=== PATIENT | female | born 2005 ===

== ENCOUNTER 2024-08-07 15:41 | Inpatient (IN) | payer BC, SELFPAY ==
--- NOTE | 2024-08-07 15:50 | MHC.CARE ---
[facility] counselor called to report that Pt will be an expect for an assessment. She reported passive SI with a plan to OD on prescription meds which she has access to. Had a plan to OD on meds in the summer. Is nervous to tell parents that she is failing this semester due to mental health concerns. Parents are not supportive. 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 They have no way of monitoring her and she made statements about overdosing if the conversation does not end well. Not many protective factors. Rated her risk to harm herself a 6-7 out of 10.
--- NOTE | 2024-08-07 15:54 | MHC.CARE ---
Nancy, Mental health counselor and after hours tongue binder from [facility] is asking to be contacted for disposition. No MIKE as of now. Nancy- [phone]
[2024-08-07 15:55] VITALS: BP 137/89; BP 138/74; PULSE 72; PULSE 78; RESP 14; TEMP 37; O2SAT 100; O2SAT 98; BMI 27.5
[2024-08-07 15:57] VITALS: RESP 16
--- NOTE | 2024-08-07 15:59 | PC.NURSE ---
Millie comes in from [facility] today from the counselors office. She reports she has been having increasing life stressors that have been bothering her more frequently. She also reports that yesterday she felt nothing and to start feelings something again, she began cutting her inner right thigh as well as her left forearm. Both areas have superficial lacerations without evidence of infection. Patient reports she has a plan to overdose on her medications to end her life. Pt is calm and cooperative, help seeking, agreeable to care. Pt verbalizes understanding of plan of care at this time
--- NOTE | 2024-08-07 16:18 | ED_ITS ---
HPI - General Adult General Chief complaint: Psychiatric Symptoms Stated complaint: SI WITH PLAN Time Seen by Provider: 08/07/24 15:51 History of Present Illness ED Provider: Kamari WINTER narrative: The patient is a 19-year-old female with a history of anxiety and depression. She is on escitalopram and propranolol. 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 The patient has been feeling depressed for some time. She says that over the summer she had suicidal thoughts at 1 point with a plan to overdose on pills but she never did it. She has been feeling depressed as well and yesterday she used a razor to make several superficial cuts on her right thigh and her left forearm. She has never cut herself before. There was no significant bleeding. Today she went to her campus and told an network support administrator that she had cut herself. An ambulance was called and she was sent a section 12. She says that she was not trying to kill herself when she cut herself she was just cutting herself to see if she could feel something. She denies having done anything else to harm herself. No fever, sweats, chills. Related Data Home Medications ?Medication ?Instructions ?Recorded ?Confirmed desogestrel 0.15 mg-ethinyl 1 tab PO DAILY 08/07/24 08/07/24 estradiol 0.03 mg tablet (Apri) escitalopram oxalate 10 mg tablet 10 mg PO DAILY 08/07/24 08/07/24 propranolol 10 mg tablet 10 mg PO BID PRN anxiety 08/07/24 08/07/24 Allergies Allergy/AdvReac Type Severity Reaction Status Date / Time No Known Allergies Allergy Verified 08/07/24 15:56 Review of Systems 2 Review of Systems: Yes all other systems are reviewed and are negative [facility] Social History Social History Alcohol intake: current Alcohol intake frequency: holidays/special occasions only Smoked in Last 30 Days: No Use of substances other than those prescribed or required for medical reasons: No Advance Directives: No Advance Directives Information Provided: Yes Patient : No Physical Exam ED Vital Signs: Vital Signs - 24 hr 08/07/24 15:55 08/07/24 15:57 Temperature 98.6 F Pulse Rate 78 Respiratory Rate 14 16 Blood Pressure 137/89 Pulse Oximetry 100 Oxygen Delivery Method Room Air BMI result Body Mass Index 27.5 Const Other: The patient is awake and alert, pleasant cooperative. She has a subdued demeanor but does not seem in distress. HENMT Other: Face is symmetrical. Mucous membranes moist. Eyes General: appearance normal, both eyes and all related structures Conjunctivae: conjunctivae normal Pupils: Equal, round and reactive pupils present Neck Neck: Yes full ROM Resp Effort & Inspection: normal respiratory effort Auscultation: clear to auscultation bilaterally Cardio Rate: regular rate Rhythm: regular rhythm Heart sounds: S1 normal heart sound present and S2 normal heart sound present GI Other: Abdomen is soft and nontender Skin Other: Skin is dry and unremarkable. She has several superficial linear scratches to the skin of the left volar forearm. Similar injuries to the right anterior thigh. No full-thickness injuries. Neuro Other: The patient is awake and alert. Mental status is clear. Cranial nerves are intact. She moves her extremities normally and appropriately. She has normal coordination. She has a normal gait Cranial nerves: Yes Equal, round and reactive pupils present Extrem Other: No peripheral edema. Psych Other: The patient his has a very subdued demeanor but makes reasonably good eye contact. Medical Decision Making Medical Decision Making MDM Narrative: The patient is a 19-year-old female who was a college student who seems to have some degree of chronic depression and anxiety. She is on escitalopram and propranolol. She does not currently have a therapist. She has been feeling down recently and today used a razor to make superficial cuts to her left forearm and her right thigh. The cuts are quite superficial and do not require any intervention. Clinically the patient seems medically clear. I suspect that her labs were all be unremarkable. She will be seen by the care team. Addendum: The patient's labs are all unremarkable. She is medically clear. She will be evaluated by the care team for disposition. Lab Data 08/07/24 16:12 08/07/24 16:12 Labs: Lab Results 08/07/24 Range/Units 16:12 WBC 9.6 (4.8-10.8) X10*3/uL RBC 4.75 (4.20-5.50) X10*6/uL Hgb 14.1 (12.0-16.0) g/dl Hct 41.1 (37.0-47.0) % MCV 86.5 (80.0-98.0) fL MCH 29.7 (27.0-33.0) pg MCHC 34.3 (31.0-35.0) g/dl RDW 12.1 (11.0-16.0) % Plt Count 315 (160-400) X10*3/uL MPV 9.5 (9.4-12.3) fL Immature Gran % (Auto) 0.3 (0.0-0.4) % Neut % (Auto) 68.6 (45-73) % Lymph % (Auto) 24.3 (20-40) % [place] % (Auto) 5.6 (2-11) % Eos % (Auto) 0.7 (0-4) % Baso % (Auto) 0.5 (0-2) % Lymph # (Auto) 2.3 (1.2-4.9) X10*3/uL [place] # (Auto) 0.5 (0.1-1.2) X10*3/uL Eos # (Auto) 0.1 (0.0-0.4) X10*3/uL Baso # (Auto) 0.1 (0.0-0.2) X10*3/uL Abs Immat Gran (auto) 0.03 (0.00-0.03) X10*3/uL Absolute Neuts (auto) 6.6 (2.0-8.3) x10*3/uL Absolute Nucleated RBC 0.000 (0.0-0.012) X10*3/uL Nucleated RBC % (auto) 0.0 (0.0-0.2) /100WBC Sodium 137 (135-145) mmol/L Potassium 3.7 (3.3-5.1) mmol/L Chloride 106 (96-108) mmol/L Carbon Dioxide 23 (22-29) mmol/L Anion Gap 12 (12-20) BUN 10 (9-16) mg/dL Creatinine 0.80 (0.5-1.4) mg/dL Estim Creat Clear Calc 104.6 Estimated GFR > 60 Random Glucose 85 (60-115) mg/dL Calcium 10.2 (8.4-10.2) mg/dL Total Bilirubin 0.4 (0.0-1.0) mg/dL AST 19 (5-31) U/L ALT 14 (0-31) U/L Alkaline Phosphatase 52 (39-117) U/L Total Protein 7.5 (6.5-8.0) g/dL Albumin 4.4 (3.5-5.0) g/dL Urine Color Yellow Urine Appearance Clear Urine pH 5.5 (5.0-9.0) Ur Specific [place] 1.010 (1.005-1.025) Urine Protein Negative (Neg-Trace) mg/dL Urine Glucose (UA) Negative (Negative) mg/dL Urine Ketones 15 (Negative) mg/dL Urine Blood Negative (Negative) Urine Nitrite Negative (Negative) Ur Leukocyte Esterase Trace H (Negative) Urine Test NEGATIVE (NEGATIVE) Urine Opiates Screen Not Detected (Not Detect) Ur Buprenorphine Scrn Not Detected (Not Detect) ng/mL Ur Oxycodone Screen Not Detected (Not Detect) ng/mL Urine Methadone Screen Not Detected (Not Detect) ng/mL Urine Fentanyl Screen Not Detected (Not Detect) Ur Barbiturates Screen Not Detected (Not Detect) Ur Phencyclidine Scrn Not Detected (Not Detect) Ur Amphetamines Screen Not Detected (Not Detect) U Benzodiazepines Scrn Not Detected (Not Detect) Urine Cocaine Screen Not Detected (Not Detect) U Marijuana (THC) Screen Not Detected (Not Detect) Ethyl Alcohol < 10 mg/dL Discharge Plan Discharge Clinical Impression: Deliberate self-cutting, Depression Patient Disposition: Still a Patient Prescriptions: No Action desogestrel-ethinyl estradiol [Apri] 0.15-0.03 mg tablet 1 tab PO DAILY propranolol 10 mg tablet 10 mg PO BID PRN (Reason: anxiety) escitalopram oxalate 10 mg tablet 10 mg PO DAILY Interventions: [place]-Suicide Risk Severity Scale Last Done: 08/07/24 15:57 Print Language: Macanese
[2024-08-07 16:22] LABS: Basophils Absolute Auto 0.1 X10*3/uL (0.0-0.2); Basophils Percent Auto 0.5 % (0-2); Eosinophils Absolute Auto 0.1 X10*3/uL (0.0-0.4); Eosinophils Percent Auto 0.7 % (0-4); Hematocrit 41.1 % (37.0-47.0); Hemoglobin 14.1 g/dl (12.0-16.0); Imm Gran Abs Auto 0.03 X10*3/uL (0.00-0.03); Imm Gran Pct Auto 0.3 % (0.0-0.4); Lymphocytes Absolute Auto 2.3 X10*3/uL (1.2-4.9); Lymphocytes Percent Auto 24.3 % (20-40); MANUAL DIFF FLAG NO; Mean Corpuscular HGB Conc 34.3 g/dl (31.0-35.0); Mean Corpuscular Hemoglobin 29.7 pg (27.0-33.0); Mean Corpuscular Volume 86.5 fL (80.0-98.0); Mean Platelet Volume 9.5 fL (9.4-12.3); Monocytes Absolute Auto 0.5 X10*3/uL (0.1-1.2); Monocytes Percent Auto 5.6 % (2-11); Neutrophils Absolute Auto 6.6 x10*3/uL (2.0-8.3); Neutrophils Percent Auto 68.6 % (45-73); Platelet Count 315 X10*3/uL (160-400); Red Blood Count 4.75 X10*6/uL (4.20-5.50); Red Cell Distribution Width 12.1 % (11.0-16.0); White Blood Count 9.6 X10*3/uL (4.8-10.8)
[2024-08-07 16:23] LABS: Appearance Urine Clear; Color Urine Yellow; Glucose Urine UA Negative (Negative); Leukocyte Esterase Urine Trace (Negative); Nitrite Urine Negative (Negative); PH 5.5 (5.0-9.0); UMIC TRIGGER UACC YES; Urine Blood Negative (Negative); Urine Ketones 15 mg/dL (Negative); Urine Protein Negative (Neg-Trace)
[2024-08-07 16:25] LABS: UPreg QC Valid YES; Urine Pregnancy NEGATIVE (NEGATIVE)
[2024-08-07 16:32] LABS: Amphetamine Screen Urine Not Detected (Not Detect); Barbiturates, Urine Not Detected (Not Detect); Benzodiazepines Screen Urine Not Detected (Not Detect); Buprenorphine Scr Not Detected (Not Detect); Cannabinoid Screen Urine Not Detected (Not Detect); Cocaine Screen Urine Not Detected (Not Detect); Fentanyl, urine Not Detected (Not Detect); Methadone Screen, Urine Not Detected (Not Detect); Opiate Screen Urine Not Detected (Not Detect); Oxycodone Screen Urine Not Detected (Not Detect); Phencyclidine Screen Urine Not Detected (Not Detect)
[2024-08-07 16:46] LABS: Alanine Aminotransferase 14 U/L (0-31); Albumin Level 4.4 g/dL (3.5-5.0); Alkaline Phosphatase 52 U/L (39-117); Anion Gap 12 (12-20); Aspartate Amino Transferase 19 U/L (5-31); Bilirubin Total 0.4 mg/dL (0.0-1.0); Blood Urea Nitrogen 10 mg/dL (9-16); Calcium 10.2 mg/dL (8.4-10.2); Carbon Dioxide 23 mmol/L (22-29); Chloride 106 mmol/L (96-108); Creatinine Clr Calc Pharmacy 104.6; Estimated Glomerular Filt Rate > 60; Ethanol < 10 mg/dL; Glucose Random 85 mg/dL (60-115); Potassium 3.7 mmol/L (3.3-5.1); Sodium 137 mmol/L (135-145); Total Protein 7.5 g/dL (6.5-8.0)
[2024-08-07 17:52] LABS: Bacteria Urine Trace (None Seen); Hyaline Casts Urine 0-2 /LPF (0-2); RBC Urine 0-2 /HPF (0-2); Squamous Epithelial Cell Urine 0-2 /HPF (0-2); UACC Culture Trigger YES
--- NOTE | 2024-08-07 19:12 | PC.NURSE ---
patient appears seated in room with parent? awaits dispo information from care team appears in no distress presently
--- NOTE | 2024-08-07 20:22 | PC.NURSE ---
car keys taken out of belongings with permission of client and given to mom.
--- NOTE | 2024-08-08 05:14 | PC.ADMIT ---
At 2250, Millie was admitted to . 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 She has been admitted due to self injurious behaviours; she had superficial cuts to her posterior left forearm (approximately 10 scabbed lines,) and on her right anterior thigh (approximately 11 scabbed lines.) Millie had told a College employee that she had cut herself, and an ambulance was called which brought her to [facility]. Millie admitted that she had been suicidal this past summer, with a plan to overdose on pills, that she never acted on. She states her self injurious behaviour is because she dissociates and cuts herself to feel something. She had never smoked cigarettes, never vaped, and never used any other tobacco products. She drinks alcohol less than once a month, and rarely drinks more than 1-2 drinks. She occasionally uses THC edibles. Her tox screen was negative at the time of this admission. She has already had a flu shot for this season. She is amenable to treatment, goal oriented, and pleasant upon admission and assessment.
[2024-08-08 08:00] VITALS: BP 115/73; PULSE 76; RESP 18; TEMP 36.4; O2SAT 97
[2024-08-08] MEDS: Escitalopram Oxalate 10 MG TABLET PO (08:46)
[2024-08-08] MEDS: hydrOXYzine HCL 25 MG TABLET PO (08:46)
--- NOTE | 2024-08-08 10:39 | HO.PSYADMNOT ---
HPI Date of Service: 08/08/24 Chief Complaint: Mental health emergency Sources of Information: patient interviewed, chart reviewed and crisis/core team assessment reviewed Additional Sources of Information: si/sib HPI Subjective Notes: Conditional Voluntary Healthcare Proxy: No Guardianship: No Medical Problems Affecting Mental Status: No Narrative: 19 yo with started getting depressed and anxious over summer did not seek out help - had some suicidal ideation then (thoughts of overdosing) and had not had before- She sought out help from a [employer] admin Saturday who referred her to [facility] counseling services- who put her in for Saturday stress management group- She did not make it to group because she again went to [employer] admin who was supportive and she felt comfortable talking to her who directed her to mental health services at [place] whom she told she had superficially cut herself- and so was sent to [facility]- and admitted. Reports pcp started lexapro this fall unclear if any effect on si/sib or on symptoms- not in therapy yet Pt reports she has had trouble performing in school this semester- it is her last semester of school. Anxious about the future. She reports chronic trouble sleeping, falling asleep may be worse now and tired on the lexapro- ( says symptoms continued to worsen despite lexapro) She reports poor concentration, dec energy, and diminished interests, able to enjoy some things, apt/wt are unchanged. Another ppt is local girl in neighborhood recently and was thought to be a suicide - Past Psychiatric History: none Medical Evaluation Reviewed: Yes no findings [facility] Medical History (Updated 08/08/24 @ 20:27 by Cindy Mayorga MD) Minor epilepsy Narrative: interesting hx of having seen neurologist and put on seizure med for prn - after 2 syncopal episodes in past- dx with minor epilepsy Family History: unknown to patient - may want to interview parents Social History: lives at home with mom and dad, older sister who is a teacher Substance History: 1 x month etoh, recreational mj edibles Trauma History: not reviewed today Diagnostics Vital Signs (24Hr): Vital Signs - 24 hr 08/07/24 15:55 08/07/24 15:57 08/08/24 08:00 Temperature 98.6 F 97.5 F Pulse Rate 78 76 Respiratory Rate 14 16 18 Blood Pressure 137/89 115/73 Pulse Oximetry 100 97 Oxygen Delivery Method Room Air Room Air BMI result Body Mass Index 27.5 Labs 08/07/24 16:12 08/07/24 16:12 Labs: Laboratory Results - last 48 hr 08/07/24 16:12 WBC 9.6 RBC 4.75 Hgb 14.1 Hct 41.1 MCV 86.5 MCH 29.7 MCHC 34.3 RDW 12.1 Plt Count 315 MPV 9.5 Immature Gran % (Auto) 0.3 Neut % (Auto) 68.6 Lymph % (Auto) 24.3 [place] % (Auto) 5.6 Eos % (Auto) 0.7 Baso % (Auto) 0.5 Lymph # (Auto) 2.3 [place] # (Auto) 0.5 Eos # (Auto) 0.1 Baso # (Auto) 0.1 Abs Immat Gran (auto) 0.03 Absolute Neuts (auto) 6.6 Absolute Nucleated RBC 0.000 Nucleated RBC % (auto) 0.0 Sodium 137 Potassium 3.7 Chloride 106 Carbon Dioxide 23 Anion Gap 12 BUN 10 Creatinine 0.80 Estim Creat Clear Calc 104.6 Estimated GFR > 60 Random Glucose 85 Calcium 10.2 Total Bilirubin 0.4 AST 19 ALT 14 Alkaline Phosphatase 52 Total Protein 7.5 Albumin 4.4 Urine Color Yellow Urine Appearance Clear Urine pH 5.5 Ur Specific [place] 1.010 Urine Protein Negative Urine Glucose (UA) Negative Urine Ketones 15 Urine Blood Negative Urine Nitrite Negative Ur Leukocyte Esterase Trace H Urine RBC 0-2 Urine WBC 6-10 H Ur Squamous Epith Cells 0-2 Urine Bacteria Trace Hyaline Casts 0-2 Urine Test NEGATIVE Urine Opiates Screen Not Detected Ur Buprenorphine Scrn Not Detected Ur Oxycodone Screen Not Detected Urine Methadone Screen Not Detected Urine Fentanyl Screen Not Detected Ur Barbiturates Screen Not Detected Ur Phencyclidine Scrn Not Detected Ur Amphetamines Screen Not Detected U Benzodiazepines Scrn Not Detected Urine Cocaine Screen Not Detected U Marijuana (THC) Screen Not Detected Ethyl Alcohol < 10 Meds/Allergies Meds Home Medications ?Medication ?Instructions ?Recorded ?Confirmed ?Type desogestrel 0.15 mg-ethinyl 1 tab PO DAILY 08/07/24 08/07/24 History estradiol 0.03 mg tablet (Apri) escitalopram oxalate 10 mg tablet 10 mg PO DAILY 08/07/24 08/07/24 History propranolol 10 mg tablet 10 mg PO BID PRN anxiety 08/07/24 08/07/24 History Allergies Allergies Allergy/AdvReac Type Severity Reaction Status Date / Time No Known Allergies Allergy Verified 08/07/24 15:56 Mental Status Exam Mental Status Exam Patient Appearance: Well Grooomed and Appropriate Patient Orientation: Person, Place, Time and Situation Level of Consciousness: Awake and Appropriate Patient Behavior: Appropriate, Cooperative and Good Eye Contact Mood Description: Apprehensive Affect Description: Anxious and Sad Patient Cognition Impaired: No Ability to Follow Directions: Good Speech Pattern: Clear Memory Description: Intact Hallucinations: None Delusions: Not Present Thought Process: Intact Thought Content: positive for Suicidal Ideation Depressive Symptoms: Increased Anxiety, Diff. Making Decisions, Difficulty Sleeping, Unhappiness, Increased Fatigue and Thoughts of /Suicide Judgement: Fair Assessment & Plan Assessment & Plan (1) Depression: Status: Acute Code(s): F32.A - Depression, unspecified Assessment and Plan: Discussed changing lexapro to snri - still black box warning /risk reviewed- but wellbutrin risk inc underlying ? 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 of inc si or just s/e of fatigue- ? of further need to expore ? of minor epilepsy as all antidepressants lower seizure threshold- get further information from parents re ? of this and any family hx . REview with patient any underlying trauma hx. Patient educated on: diagnosis and medical condition Guardian/Caregiver educated on: medication risk/benefits Informed Consent: understands Reason for continued inpatient stay Substantial Risk for: harm to self and rapid decompensation Statement Statement: I have reviewed the history and physical and performed a pertinent examination on my patient. No changes have occurred unless specified. If the History and Physical was not performed prior to admission, the Hospitalist's service will be consulted for completing the admission physical. Time Spent With Patient Time: Total time managing care of this patient today ____ minutes.
[2024-08-08] MEDS: DESOGESTREL ETHINYL ESTRADIOL 1 EACH PO (13:48)
[2024-08-08 20:00] VITALS: BP 108/68; PULSE 94; TEMP 36.7; O2SAT 97
[2024-08-08] MEDS: traZODone HCL 25 MG HALFTAB PO (21:57)
[2024-08-09 08:00] VITALS: BP 101/59; PULSE 80; RESP 18; TEMP 36.6; O2SAT 97
[2024-08-09] MEDS: DULoxetine HCl 30 MG CAPSULE.DR PO (08:56)
--- NOTE | 2024-08-09 13:03 | P.PNPSI_ITS ---
Subjective Subjective Date of Service: 08/09/24 Reason For Visit: Mental health emergency Subjective Notes: Conditional Voluntary Healthcare Proxy: No Guardianship: No Medical Problems Affecting Mental Status: No Interim History: 19 yo reports feeling better today adjusted to psychiatric unit- slept better with 1/2 trazodone last pm- and tolerated first dose of duloxetine, which provider changed from lexapro that she had been on for 2 months or so - with no improvement, si/sib and fatigue- Feeling more hopeful denying current si/sib thoughts- Medication Compliance: Yes Side effects from medications: No Attending Groups: Intermittent Review of Systems Acute medical concerns: No Medical Review of Systems: unchanged Mental Status Exam Mental Status Exam Patient Appearance: Well Grooomed and Appropriate Patient Orientation: Person, Place, Time and Situation Level of Consciousness: Awake Patient Behavior: Appropriate, Cooperative and Good Eye Contact Mood Description: Anxious Affect Description: Appropriate Speech Pattern: Clear Thought Process: Intact Thought Content: positive for Goal Oriented and positive for Suicidal Ideation (decreased!) Depressive Symptoms: Low Self Esteem, Loss of Energy and Difficulty Concentrating Judgement: Fair Diagnostics Vital Signs (24Hr): Vital Signs - 24 hr 08/08/24 20:00 08/09/24 08:00 Temperature 98.1 F 98 F Pulse Rate 94 80 Respiratory Rate 18 Blood Pressure 108/68 101/59 L Pulse Oximetry 97 97 Oxygen Delivery Method Room Air Room Air BMI result Body Mass Index 27.5 Labs 08/07/24 16:12 08/07/24 16:12 Labs: Laboratory Results - last 48 hr 08/07/24 16:12 WBC 9.6 RBC 4.75 Hgb 14.1 Hct 41.1 MCV 86.5 MCH 29.7 MCHC 34.3 RDW 12.1 Plt Count 315 MPV 9.5 Immature Gran % (Auto) 0.3 Neut % (Auto) 68.6 Lymph % (Auto) 24.3 [place] % (Auto) 5.6 Eos % (Auto) 0.7 Baso % (Auto) 0.5 Lymph # (Auto) 2.3 [place] # (Auto) 0.5 Eos # (Auto) 0.1 Baso # (Auto) 0.1 Abs Immat Gran (auto) 0.03 Absolute Neuts (auto) 6.6 Absolute Nucleated RBC 0.000 Nucleated RBC % (auto) 0.0 Sodium 137 Potassium 3.7 Chloride 106 Carbon Dioxide 23 Anion Gap 12 BUN 10 Creatinine 0.80 Estim Creat Clear Calc 104.6 Estimated GFR > 60 Random Glucose 85 Calcium 10.2 Total Bilirubin 0.4 AST 19 ALT 14 Alkaline Phosphatase 52 Total Protein 7.5 Albumin 4.4 Urine Color Yellow Urine Appearance Clear Urine pH 5.5 Ur Specific [place] 1.010 Urine Protein Negative Urine Glucose (UA) Negative Urine Ketones 15 Urine Blood Negative Urine Nitrite Negative Ur Leukocyte Esterase Trace H Urine RBC 0-2 Urine WBC 6-10 H Ur Squamous Epith Cells 0-2 Urine Bacteria Trace Hyaline Casts 0-2 Urine Test NEGATIVE Urine Opiates Screen Not Detected Ur Buprenorphine Scrn Not Detected Ur Oxycodone Screen Not Detected Urine Methadone Screen Not Detected Urine Fentanyl Screen Not Detected Ur Barbiturates Screen Not Detected Ur Phencyclidine Scrn Not Detected Ur Amphetamines Screen Not Detected U Benzodiazepines Scrn Not Detected Urine Cocaine Screen Not Detected U Marijuana (THC) Screen Not Detected Ethyl Alcohol < 10 Medications Medications Current Medications Acetaminophen (Acetaminophen 325 Mg Tablet) 650 mg PO Q6H PRN PRN Reason: Headache/Pain Mild Scale (1-3) Al Hydroxide/Mg Hydroxide (Magnesium Hydrox/Alum Hydrox 30 Ml Oral.Susp) 30 ml PO Q6H PRN PRN Reason: Heartburn/Nausea Duloxetine HCl (Duloxetine Hcl 30 Mg Capsule.Dr) 30 mg PO DAILY [facility] Last Admin: 08/09/24 08:56 Dose: 30 mg Hydroxyzine HCl (Hydroxyzine Hcl 25 Mg Tablet) 25 mg PO Q6H PRN PRN Reason: Anxiety Last Admin: 08/08/24 08:46 Dose: 25 mg Magnesium Hydroxide (Milk Of Magnesia 30 Ml Oral.Susp) 30 ml PO DAILY PRN PRN Reason: Constipation Nicotine Polacrilex (Nicotine Polacrilex 2 Mg Gum) 4 mg BUCCAL Q2H PRN PRN Reason: Nicotine Cravings Pt Own (Desogestrel- Ethinyl Estradiol [ Apri] 0.15-0.03 Mg Tablet) 1 tab PO DAILY [facility] Last Admin: 08/09/24 08:57 Dose: Not Given Propranolol HCl (Propranolol Hcl 10 Mg Tablet) 10 mg PO BID PRN; Protocol PRN Reason: anxiety Trazodone HCl (Trazodone Hcl 25 Mg Halftab) 25 mg PO BEDTIME MRX1 [facility] Last Admin: 08/09/24 00:28 Dose: Not Given Allergies Allergies Allergy/AdvReac Type Severity Reaction Status Date / Time No Known Allergies Allergy Verified 08/07/24 15:56 Assessment & Plan Assessment & Plan (1) Depression: Status: Acute Code(s): F32.A - Depression, unspecified Assessment and Plan: Discussed changing lexapro to snri - still black box warning /risk reviewed- but wellbutrin risk inc underlying ? 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 of inc si or just s/e of fatigue- ? of further need to expore ? of minor epilepsy as all antidepressants lower seizure threshold- get further information from parents re ? of this and any family hx . REview with patient any underlying trauma hx. 08/09 pt slept better with 25mg trazodone and as yet has noticed no side effects from med change, discussed serotonin withdrawl syndrome so pt will be aware if there is some from dc lexapro- hoping offset by snri started Patient educated on: medication risk/benefits and therapeutic strategies Informed Consent: understands Reason for continued inpatient stay Substantial Risk for: harm to self and rapid decompensation Time Spent With Patient Time: Total time managing care of this patient today ____ minutes.
[2024-08-09 19:40] VITALS: BP 122/80; PULSE 89; RESP 18; TEMP 36.5; O2SAT 98
[2024-08-09] MEDS: traZODone HCL 25 MG HALFTAB PO (22:02)
[2024-08-09] MEDS: DESOGESTREL ETHINYL ESTRADIOL 1 EACH PO (22:03)
[2024-08-10] MEDS: DULoxetine HCl 30 MG CAPSULE.DR PO (08:43)
[2024-08-10 09:19] VITALS: BP 107/68; PULSE 77; TEMP 36.5; O2SAT 98
--- NOTE | 2024-08-10 11:00 | P.PNPSI_ITS ---
Subjective Subjective Date of Service: 08/10/24 Reason For Visit: Mental health emergency Interim History: met with patient; discussed with team; reviewed chart pt has been struggling w/ depression for about 2 years however, only realized how bad and real it was this summer when she first had SI with plan to OD on pills; she talked herself out of it and told no one Started on Lexapro this fall. Says it did help with anxiety and on it, no anxiety attacks (formerly getting them 1/week, sometimes more) but caused daytime drowsiness. Throughout this past has had depression all semester but got worse this past month Last week superficial self-harm due to feeling numb, empty void.. like a robot...and cutting made me feel something. Told a faculty advisor she had thoughts what if i just did not wake up... Had some vague SI but it did not develop into plans/intention regarding anxiety, pt reports she has worries about various things throughout the day that impede function; pt described details Denies hx of manic type episodes or behaviors.... 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 discussed meds; wants to remain on newly started Duloxetine; agrees to increase Mental Status Exam Mental Status Exam Narrative: Pt is alert and oriented; behavior is cooperative, friendly and calm; patient is not in distress; dressed in casual attire w/ adequate hygiene; mood is described as ok and affect congruent; eye contact appropriate; Speech is normal rate, volume and prosody and not pressured; no psychomotor agitation/retardation present; thought process is organized and goal directed; Thought content is on tx; otherwise pertinent to relevant topics and without any delusional content, paranoid ideations or grandiosity; denies any SI/HI. There is no evidence of perceptual disturbance. Patients insight and judgment appear intact. Diagnostics Vital Signs (24Hr): Vital Signs - 24 hr 08/09/24 19:40 08/10/24 09:19 Temperature 97.7 F 97.7 F Pulse Rate 89 77 Respiratory Rate 18 Blood Pressure 122/80 107/68 Pulse Oximetry 98 98 Oxygen Delivery Method Room Air Room Air BMI result Body Mass Index 27.5 Labs 08/07/24 16:12 11/22/24 16:12 Medications Medications Current Medications Acetaminophen (Acetaminophen 325 Mg Tablet) 650 mg PO Q6H PRN PRN Reason: Headache/Pain Mild Scale (1-3) Al Hydroxide/Mg Hydroxide (Magnesium Hydrox/Alum Hydrox 30 Ml Oral.Susp) 30 ml PO Q6H PRN PRN Reason: Heartburn/Nausea Duloxetine HCl (Duloxetine Hcl 30 Mg Capsule.Dr) 30 mg PO DAILY [facility] Last Admin: 08/10/24 08:43 Dose: 30 mg Hydroxyzine HCl (Hydroxyzine Hcl 25 Mg Tablet) 25 mg PO Q6H PRN PRN Reason: Anxiety Last Admin: 08/08/24 08:46 Dose: 25 mg Magnesium Hydroxide (Milk Of Magnesia 30 Ml Oral.Susp) 30 ml PO DAILY PRN PRN Reason: Constipation Nicotine Polacrilex (Nicotine Polacrilex 2 Mg Gum) 4 mg BUCCAL Q2H PRN PRN Reason: Nicotine Cravings Pt Own (Desogestrel- Ethinyl Estradiol [ Apri] 0.15-0.03 Mg Tablet) 1 tab PO DAILY [facility] Last Admin: 08/09/24 22:03 Dose: 1 tab Propranolol HCl (Propranolol Hcl 10 Mg Tablet) 10 mg PO BID PRN; Protocol PRN Reason: anxiety Trazodone HCl (Trazodone Hcl 25 Mg Halftab) 25 mg PO BEDTIME MRX1 [facility] Last Admin: 08/10/24 00:22 Dose: Not Given Allergies Allergies Allergy/AdvReac Type Severity Reaction Status Date / Time No Known Allergies Allergy Verified 08/07/24 15:56 Assessment & Plan Assessment & Plan (1) MDD (major depressive disorder), recurrent severe, without psychosis: Status: Acute Code(s): F33.2 - Major depressive disorder, recurrent severe without psychotic features (2) SCOOBY (generalized anxiety disorder): Status: Acute Code(s): F41.1 - Generalized anxiety disorder (3) Deliberate self-cutting: Status: Acute Code(s): Z72.89 - Other problems related to lifestyle (4) Panic disorder: Status: Acute Code(s): F41.0 - Panic disorder [episodic paroxysmal anxiety] (5) Minor epilepsy: Status: Acute Code(s): G40.909 - Epilepsy, unspecified, not intractable, without status epilepticus Plan 19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 of inc si or just s/e of fatigue- ? of further need to expore ? of minor epilepsy as all antidepressants lower seizure threshold- get further information from parents re ? of this and any family hx . REview with patient any underlying trauma hx. pt has been struggling w/ depression for about 2 years however, only realized how bad and real it was this summer when she first had SI with plan to OD on pills; she talked herself out of it and told no one Started on Lexapro this fall. Says it did help with anxiety and on it, no anxiety attacks (formerly getting them 1/week, sometimes more) but caused daytime drowsiness. Throughout this past has had depression all semester but got worse this past month Last week superficial self-harm due to feeling numb, empty void.. like a robot...and cutting made me feel something. Told a faculty advisor she had thoughts what if i just did not wake up... Had some vague SI but it did not develop into plans/intention regarding anxiety, pt reports she has worries about various things throughout the day that impede function; pt described details Denies hx of manic type episodes or behaviors.... Denies hx of trauma No hx of drug/alcohol abuse no hx [facility]: 08/09 pt slept better with 25mg trazodone and as yet has noticed no side effects from med change, discussed serotonin withdrawl syndrome so pt will be aware if there is some from dc lexapro- hoping offset by snri started 08/10 doing better; less depressed; tolerating duloxetine no SI; mom visiting; feels daughter ready to come home; daughter feeling ready as well Patient educated on: diagnosis, medication risk/benefits and therapeutic strategies Informed Consent: understands Reason for continued inpatient stay Substantial Risk for: stable for discharge and rapid decompensation Time Spent With Patient Time: Total time managing care of this patient today ____ minutes.
[2024-08-10 20:00] VITALS: BP 117/77; PULSE 93; RESP 16; TEMP 37.2; O2SAT 99
[2024-08-10] MEDS: DESOGESTREL ETHINYL ESTRADIOL 1 EACH PO (21:55)
[2024-08-11] MEDS: traZODone HCL 25 MG HALFTAB PO ×2 (00:23→22:46)
[2024-08-11 09:41] VITALS: BP 102/64; PULSE 86; TEMP 36.7; O2SAT 97
--- NOTE | 2024-08-11 09:59 | HO.PSYCHPN ---
Subjective Subjective Date of Service: 08/11/24 Reason For Visit: Mental health emergency Interim History: met with patient; discussed with team Patient reports feeling better. Says her mood is pretty good and she is feeling much more optimistic. No suicidal thoughts, no thoughts or urges to self-harm. Patient is eating and sleeping well and feels that p.r.n. trazodone and hydroxyzine are both helpful. Patient has been meeting with her mom and they together have an appointment with the [employer] to see if she can finish her semester. She is looking forward to discharge tomorrow. Patient discussed her relationship with her family and how to cope with the dynamic. Discussed again medications, risks/side effects as well as diagnosis which patient understands and is eager to continue in treatment post discharge. Mental Status Exam Mental Status Exam Narrative: Pt is alert and oriented; behavior is cooperative, friendly and calm; patient is not in distress; dressed in casual attire with good hygiene and grooming; mood is described as pretty good and affect congruent, bright, calm; eye contact appropriate; Speech is normal rate, volume and prosody and not pressured; no psychomotor agitation/retardation present; thought process is organized and goal directed; Thought content is on tx; otherwise pertinent to relevant topics and without any delusional content, paranoid ideations or grandiosity; denies any SI/HI. There is no evidence of perceptual disturbance. Patients insight and judgment are intact. Diagnostics Vital Signs (24Hr): Vital Signs - 24 hr 08/10/24 20:00 08/11/24 09:41 Temperature 98.9 F 98.0 F Pulse Rate 93 86 Respiratory Rate 16 Blood Pressure 117/77 102/64 Pulse Oximetry 99 97 Oxygen Delivery Method Room Air Room Air BMI result Body Mass Index 27.5 Labs 08/07/24 16:12 08/07/24 16:12 Medications Medications Current Medications Acetaminophen (Acetaminophen 325 Mg Tablet) 650 mg PO Q6H PRN PRN Reason: Headache/Pain Mild Scale (1-3) Al Hydroxide/Mg Hydroxide (Magnesium Hydrox/Alum Hydrox 30 Ml Oral.Susp) 30 ml PO Q6H PRN PRN Reason: Heartburn/Nausea Clonidine HCl (Clonidine Hcl 0.1 Mg Tablet) 0.1 mg PO Q4H PRN; Protocol PRN Reason: anxiety Duloxetine HCl (Duloxetine Hcl 60 Mg Capsule.Dr) 60 mg PO DAILY [facility] Hydroxyzine HCl (Hydroxyzine Hcl 25 Mg Tablet) 25 mg PO Q6H PRN PRN Reason: Anxiety Last Admin: 08/08/24 08:46 Dose: 25 mg Magnesium Hydroxide (Milk Of Magnesia 30 Ml Oral.Susp) 30 ml PO DAILY PRN PRN Reason: Constipation Nicotine Polacrilex (Nicotine Polacrilex 2 Mg Gum) 4 mg BUCCAL Q2H PRN PRN Reason: Nicotine Cravings Pt Own (Desogestrel- Ethinyl Estradiol [ Apri] 1 Tab) 1 tab PO DAILY@2100 [facility] Last Admin: 08/10/24 21:55 Dose: 1 tab Trazodone HCl (Trazodone Hcl 25 Mg Halftab) 25 mg PO BEDTIME MRX1 [facility] Last Admin: 08/11/24 03:34 Dose: Not Given Allergies Allergies Allergy/AdvReac Type Severity Reaction Status Date / Time No Known Allergies Allergy Verified 08/07/24 15:56 Assessment & Plan Assessment & Plan (1) MDD (major depressive disorder), recurrent severe, without psychosis: Status: Acute Code(s): F33.2 - Major depressive disorder, recurrent severe without psychotic features (2) SCOOBY (generalized anxiety disorder): Status: Acute Code(s): F41.1 - Generalized anxiety disorder (3) Deliberate self-cutting: Status: Acute Code(s): Z72.89 - Other problems related to lifestyle (4) Panic disorder: Status: Acute Code(s): F41.0 - Panic disorder [episodic paroxysmal anxiety] (5) Minor epilepsy: Status: Acute Code(s): G40.909 - Epilepsy, unspecified, not intractable, without status epilepticus Plan 19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 of inc si or just s/e of fatigue- ? of further need to expore ? of minor epilepsy as all antidepressants lower seizure threshold- get further information from parents re ? of this and any family hx . REview with patient any underlying trauma hx. pt has been struggling w/ depression for about 2 years however, only realized how bad and real it was this summer when she first had SI with plan to OD on pills; she talked herself out of it and told no one Started on Lexapro this fall. Says it did help with anxiety and on it, no anxiety attacks (formerly getting them 1/week, sometimes more) but caused daytime drowsiness. Throughout this past has had depression all semester but got worse this past month Last week superficial self-harm due to feeling numb, empty void.. like a robot...and cutting made me feel something. Told a faculty advisor she had thoughts what if i just did not wake up... Had some vague SI but it did not develop into plans/intention regarding anxiety, pt reports she has worries about various things throughout the day that impede function; pt described details Denies hx of manic type episodes or behaviors.... Denies hx of trauma No hx of drug/alcohol abuse no hx [facility] HOSPITAL COURSE: 08/09 pt slept better with 25mg trazodone and as yet has noticed no side effects from med change, discussed serotonin withdrawl syndrome so pt will be aware if there is some from dc lexapro- hoping offset by snri started 08/10 doing better; less depressed; tolerating duloxetine no SI; mom visiting; feels daughter ready to come home; daughter feeling ready as well 08/11 Patient reports feeling better. Says her mood is pretty good and she is feeling much more optimistic. Tolerating medication well. No suicidal thoughts, no thoughts or urges to self-harm. Patient is eating and sleeping well and feels that p.r.n. trazodone and hydroxyzine are both helpful. Patient has been meeting with her mom and they together have an appointment with the [employer] to see if she can finish her semester. She is looking forward to discharge tomorrow. Patient discussed her relationship with her family and how to cope with the dynamic. Discussed again medications, risks/side effects as well as diagnosis which patient understands and is eager to continue in treatment post discharge. Patient mood is good and depression and anxiety have both significantly reduced. Patient is future oriented, looking forward to returning to school. Patient did not have actual SI prior to admission and has remained without any SI or self harming urges or thoughts. She understands her diagnosis and medications and is committed to continuing treatment post discharge. She is returning home where she lives with her supportive family. Patient has been in good behavioral and impulse control throughout her time in the unit, appropriate with peers and staff and engaged in treatment. She feels safe and stable and is asking to be discharged home. She is not in imminent risk for harm to self or others and appropriate to return to the community for discharge. Patient educated on: diagnosis, medication risk/benefits and therapeutic strategies Informed Consent: understands Reason for continued inpatient stay Substantial Risk for: stable for discharge Time Spent With Patient Time: Total time managing care of this patient today ____ minutes.
[2024-08-11] MEDS: DULoxetine HCl 60 MG CAPSULE.DR PO (10:09)
[2024-08-11] MEDS: hydrOXYzine HCL 25 MG TABLET PO (13:42)
[2024-08-11 20:00] VITALS: BP 106/61; PULSE 102; RESP 16; TEMP 37.6; O2SAT 100
[2024-08-11] MEDS: DESOGESTREL ETHINYL ESTRADIOL 1 EACH PO (22:46)
[2024-08-12 08:00] VITALS: BP 98/64; PULSE 95; RESP 14; TEMP 36.4; O2SAT 98
--- NOTE | 2024-08-12 08:39 | PM.PSYDC ---
DS: Providers Provider Date of Service: 08/12/24 Date of admission: 08/07/24 20:49 Date of discharge: 08/12/24 Primary care physician: Unknown Physician Attending physician on admission: Miles Gutierrez Consults: 08/07/24 16:23 Consult to Care Team Routine Comment: Reason for consultation: SI with plan to overdose on medications Attending physician on discharge: Miles Gutierrez DS: Diagnosis Discharge Diagnosis (1) MDD (major depressive disorder), recurrent severe, without psychosis: Status: Acute (2) SCOOBY (generalized anxiety disorder): Status: Acute (3) Deliberate self-cutting: Status: Acute (4) Panic disorder: Status: Acute (5) Minor epilepsy: Status: Acute DS: Medications Discharge Medications Home Medications: Home Medications ?Medication ?Instructions ?Recorded ?Confirmed desogestrel 0.15 mg-ethinyl 1 tab PO DAILY 08/07/24 08/07/24 estradiol 0.03 mg tablet (Apri) Previous Rx's ?Medication ?Instructions ?Recorded duloxetine 60 mg capsule,delayed 60 mg PO DAILY 30 days #30 caps 08/12/24 release hydroxyzine HCl 25 mg tablet 25 mg PO Q6H PRN Anxiety 30 days 08/12/24 #90 tabs trazodone 50 mg tablet See Rx Instructions .Route 08/12/24 .COMPLEX Insomnia #30 tabs Mental Status Exam Mental Status Exam Narrative: Pt is alert and oriented; behavior is cooperative, friendly and calm; patient is not in distress; dressed in casual attire with good hygiene and grooming; mood is described as good and affect congruent, bright, calm; eye contact appropriate; Speech is normal rate, volume and prosody and not pressured; no psychomotor agitation/retardation present; thought process is organized and goal directed; Thought content is on discharge, seeing her family, school; otherwise pertinent to relevant topics and without any delusional content, paranoid ideations or grandiosity; denies any SI/HI. There is no evidence of perceptual disturbance. Patients insight and judgment are intact. Data Data Completed and Pending Completed studies during hospitalization [Text1]: 08/07/24 16:12 WBC 9.6 RBC 4.75 Hgb 14.1 Hct 41.1 MCV 86.5 MCH 29.7 MCHC 34.3 RDW 12.1 Plt Count 315 MPV 9.5 Immature Gran % (Auto) 0.3 Neut % (Auto) 68.6 Lymph % (Auto) 24.3 Eddy % (Auto) 5.6 Eos % (Auto) 0.7 Baso % (Auto) 0.5 Lymph # (Auto) 2.3 Eddy # (Auto) 0.5 Eos # (Auto) 0.1 Baso # (Auto) 0.1 Abs Immat Gran (auto) 0.03 Absolute Neuts (auto) 6.6 Absolute Nucleated RBC 0.000 Nucleated RBC % (auto) 0.0 Sodium 137 Potassium 3.7 Chloride 106 Carbon Dioxide 23 Anion Gap 12 BUN 10 Creatinine 0.80 Estim Creat Clear Calc 104.6 Estimated GFR > 60 Random Glucose 85 Calcium 10.2 Total Bilirubin 0.4 AST 19 ALT 14 Alkaline Phosphatase 52 Total Protein 7.5 Albumin 4.4 Urine Color Yellow Urine Appearance Clear Urine pH 5.5 Ur Specific [place] 1.010 Urine Protein Negative Urine Glucose (UA) Negative Urine Ketones 15 Urine Blood Negative Urine Nitrite Negative Ur Leukocyte Esterase Trace H Urine RBC 0-2 Urine WBC 6-10 H Ur Squamous Epith Cells 0-2 Urine Bacteria Trace Hyaline Casts 0-2 Urine Test NEGATIVE Urine Opiates Screen Not Detected Ur Buprenorphine Scrn Not Detected Ur Oxycodone Screen Not Detected Urine Methadone Screen Not Detected Urine Fentanyl Screen Not Detected Ur Barbiturates Screen Not Detected Ur Phencyclidine Scrn Not Detected Ur Amphetamines Screen Not Detected U Benzodiazepines Scrn Not Detected Urine Cocaine Screen Not Detected U Marijuana (THC) Screen Not Detected Ethyl Alcohol < 10 08/07/24 17:52 Urine clean catch - Clean Catch Midstream Urine Culture - Final DS: Summary Hospital Course Hospital Course: HPI: 19 yo female, 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 Patient reports she has been struggling w/ depression for about 2 years however, only realized how bad and real it was this summer when she first had SI with plan to OD on pills; she talked herself out of it and told no one. She was Started on Lexapro this fall. Says it did help with anxiety and on it, and resolved panic attacks (formerly getting them 1/week, sometimes more) but caused daytime drowsiness; she continued to take it though depression remained and continue throughout this past semester. This past month a got significantly worse. Patient reports she did not become actively suicidal however would intermittently have a passive wish; this Last week she superficial self-harmed to cope with feeling numb, empty like a robot... and cutting made me feel something. She Told her faculty advisor she had thoughts what if i just did not wake up... And so patient was sent to the hospital. Patient struggles with anxiety daily and throughout the day, worrying about various things such as where she will sit in class, how to talk to a teacher...such worries impede function and distract her from attending to daily tasks Denies hx of manic type episodes or behaviors.... Denies hx of trauma No hx of drug/alcohol abuse no hx AVH regarding anxiety, pt reports she has worries about various things throughout the day that impede function; pt described details HOSPITAL COURSE: Patient depressed on admission however cooperative, calm, no SI. Discussed medications with admitting provider and together decided to discontinue Lexapro; even though it helped with anxiety, it made her tired during the day so they agreed to start duloxetine. Patient has chronic insomnia and been from try acetone is well. Patient's mother visited daily and was engaged in treatment discussions. Patient very soon started doing better, depression began to resolve, anxiety lower and she continued tolerating duloxetine which was increased to 60 mg. Patient remained in good behavioral and impulse control throughout her time in the unit. She was future oriented and hoping to get back to school and finish the semester, as it is her goal to complete college a semester early. Patient soon asked for discharge, feeling safe and stable and eager to get back home and to school. Mom also felt that patient was ready for discharge and to return home. As discharge approached, patient remained optimistic, feeling better and said her mood is pretty good. Tolerating medication well. No suicidal thoughts, no thoughts or urges to self-harm. Patient is eating and sleeping well and feels that p.r.n. trazodone and hydroxyzine are both helpful. Patient has been meeting with her mom and they together have an appointment with the [employer] to see if she can finish her semester. She is looking forward to discharge tomorrow. Patient discussed her relationship with her family and how to cope with the dynamic. Discussed again medications, risks/side effects as well as diagnosis which patient understands and is eager to continue in treatment post discharge. -discussed that duloxetine and similar medications can lower the seizure threshold however the incidences very low. Impression: Patient mood is good and depression and anxiety have both significantly reduced. Patient is future oriented, looking forward to returning to school. Patient did not have actual SI prior to admission and has remained without any SI or self harming urges or thoughts. She understands her diagnosis and medications and is committed to continuing treatment post discharge. She is returning home where she lives with her supportive family. Patient has been in good behavioral and impulse control throughout her time in the unit, appropriate with peers and staff and engaged in treatment. She feels safe and stable and is asking to be discharged home. She is not in imminent risk for harm to self or others and appropriate to return to the community for discharge. Time spent discussing smoking cessation with patient: 3 to 10 minutes Status at Discharge Functional status at discharge: independent ambulation Overall status at discharge: patient is back to baseline Time Spent with Patient Time attestation: Total time managing care of this patient today _40___ minutes. Time spent: Greater than 30 minutes Specific discharge activities: Met with patient; discussed with team; charting, prescriptions; letter to the [facility] Discharge Plan Discharge Anticipated Discharge Date/Time: 08/12/24 11:30 Patient Disposition: Home, Self-Care Discharge Diagnosis: MDD, recurrent, severe without psychosis, in full remission Referrals: Physician,Unknown J [Primary Care Provider] - 1 Week Discharge Medications: New duloxetine 60 mg Capsule,Delayed Release(Dr/Ec) 60 mg PO DAILY 30 Days Qty: 30 0RF hydroxyzine HCl 25 mg Tablet 25 mg PO Q6H PRN (Reason: Anxiety) 30 Days Qty: 90 0RF trazodone 50 mg tablet See Rx Instructions .ROUTE .COMPLEX Qty: 30 0RF Rx Instructions: take 1/2 tab to 1 tab at bedtime as needed for insomnia Continued desogestrel-ethinyl estradiol [Apri] 0.15-0.03 mg tablet 1 tab PO DAILY Discontinued propranolol 10 mg tablet 10 mg PO BID PRN (Reason: anxiety) escitalopram oxalate 10 mg tablet 10 mg PO DAILY Discharge Orders: Discharge Order (Routine); Ordered 08/12/24 Ordered By: Miles Gutierrez Diet: Regular diet Activity on Discharge: As tolerated Stand Alone Forms: Patient Portal Discharge page Print Language: Norwegian Care Plan Goals: Maintain mood and safe behaviors Take medications as prescribed Practice coping skills Continue with outpatient providers and reach out to them as needed Health Concerns: Mood stability and behaviors Minor epilepsy Plan of Treatment: Follow up with your PCP, psychiatric provider and other outpatient providers regarding above concerns Take medications as prescribed Assessment: Risk assessment at time of discharge:? Patient was interviewed prior to discharge and found to be fully oriented and without any SI or HI. Patient has improved insight and judgment and wants to continue treatment. Patient is not in imminent risk of harm to self or others and has a safety plan that includes presenting to the closest ER or calling 911 if feeling unsafe.? Patient has been observed closely by nursing and unit staff throughout admission; patient has not engaged in any behaviors that suggest dangerousness to self or others and has demonstrated appropriate behaviors and impulse control
[2024-08-12] MEDS: DULoxetine HCl 60 MG CAPSULE.DR PO (09:44)
== END 2024-08-12 11:50 | disposition home or self-care (01) | DRG 751 ==
LOC: HO.ED 16:40 → HO.PM5 22:34
PROVIDERS: Admitting Provider Psychiatry & Neurology Psychiatry; Emergency Provider Emergency Medicine; Visit Provider Psychiatry & Neurology Psychiatry
DX: F33.2 Major depressive disorder, recurrent severe without psychotic features (principal); R45.851 Suicidal ideations; G40.802 Other epilepsy, not intractable, without status epilepticus; F41.0 Panic disorder [episodic paroxysmal anxiety]; F41.1 Generalized anxiety disorder; Z91.52 Personal history of nonsuicidal self-harm; Z79.899 Other long term (current) drug therapy
CPT/HCPCS: 36415; 80053; 80307; 81001; 81025; 85025; 87086; 99285; S9485

== ENCOUNTER → 2024-08-07 20:49 | Outpatient (BNV) | payer BC, SELFPAY | PROVIDERS: Admitting Provider Psychiatry & Neurology Psychiatry; Emergency Provider Emergency Medicine; Visit Provider Psychiatry & Neurology Psychiatry | DX: F33.2 Major depressive disorder, recurrent severe without psychotic features (principal); F41.1 Generalized anxiety disorder; Z72.89 Other problems related to lifestyle; F41.0 Panic disorder [episodic paroxysmal anxiety]; G40.909 Epilepsy, unspecified, not intractable, without status epilepticus | CPT/HCPCS: 99231; 99239 ==